=== PATIENT | male | born 1980 | race Caucasian/White ===

== ENCOUNTER 2018-01-14 11:18 | Emergency (ER) | payer MEDICAID ==
[~2018-01-14 11:18] MED LIST: BUTA1CAP36 PO; BUTA1CAP4 PO; CYCL10TA29 PO; DICL-195 PO; DICY-42 PO; Flexeril; KET10 PO; METO-734 PO; ONDA4TAB PO; OXYC-865 PO; PROM-110 PO
--- NOTE | 2018-01-14 11:25 | ER Report ---
History and Physical Time Seen By MD: 11:26 Hx. of Stated Complaint: PATIENT IS REPORTING LEFT KNEE PAIN HPI/ROS CHIEF COMPLAINT: Left knee pain HISTORY OF PRESENT ILLNESS: 37-year-old male patient presents to emergency room with complaint of left knee pain. Patient states his been having pain to the kn ee for the past month. He states that he saw his primary care provider who felt that he had a torn meniscus and wanted him to try physical therapy. He states he's done physical therapy for to 3 weeks and states that yesterday he squatted down to grab something off the floor and when he stood up felt a pop in his knee. He believes he may have torn the rest the meniscus. Patient states that he has had significant amounts of pain throughout the last 24 hours. He states that the pain is worse any time that he bends his knee. States the pain is better whenever he keeps the leg straight. Patient states he does not have any pain with bearing weight on the leg. Patient states he is taking diclofenac with no improvement. REVIEW OF SYSTEMS: Respiratory: No cough, no dyspnea. Cardiovascular: No chest pain, no palpitations. Gastrointestinal: No vomiting, no abdominal pain. Musculoskeletal: As noted above Allergies: Coded Allergies: No Known Drug Allergies (Unverified , 12/02/16) Home Meds Active Scripts Tramadol Hcl (TRAMADOL HCL) 50 Mg Tablet, 50 MG PO Q4-6H PRN for PAIN, #8 TAB Prov:KIM GODDARDSSE METAL MACHINE SETTER 01/14/18 Metoclopramide Hcl (REGLAN) 10 Mg Tablet, 10 MG PO Q6H PRN for nausea, #30 Prov:GINA MARTIN DO 12/02/16 Butalb/Acetaminophen/Caffeine (FIORICET 50-300-40 MG CAPSULE) 1 Each Capsule, 1 EACH PO Q4H PRN for HEADACHE, #20 CAPSULE Prov:GINA MARTIN DO 08/07/16 Promethazine Hcl (PROMETHAZINE HCL) 25 Mg Tablet, 25 MG PO Q4H PRN for NAUSEA/VOMITING, #14 TAB Prov:GINA MARTIN DO 08/07/16 Oxycodone Hcl/Acetaminophen (PERCOCET 5-325 MG TABLET) 1 Each Tablet, 1 EACH PO Q4-6H PRN for pain, #12 Prov:GINA MARTIN DO 08/07/16 Reported Medications Cyclobenzaprine Hcl (CYCLOBENZAPRINE HCL) 10 Mg Tablet, 10 MG PO PRN PRN for OK, #9 TAB 08/07/16 Diclofenac Sodium (DICLOFENAC SODIUM) 75 Mg Tablet.dr, 75 MG PO PRN PRN for MIGRAINE, TAB 08/07/16 Past Medical/Surgical History Patient has a past medical history of migraines, asthma, reflux, back pain, substance abuse, depression, anxiety, suicide attempt. Patient has surgical history of tooth extractions. Reviewed Nurses Notes: Yes Hx Smoking: Yes (1 PPD X 15 YRS ) Smoking Status: Current: Every Day Smoker Hx Substance Use Disorder: Yes Hx Alcohol Use: No Constitutional Vital Sign - Last 24 Hours 01/14/18 01/14/18 11:22 12:26 Temp 98.2 Pulse 94 97 Resp 20 20 B/P (MAP) 133/98 147/92 (110) Pulse Ox 95 95 O2 Delivery Room Air Physical Exam General Appearance: The patient is alert, has no immediate need for airway protection and no current signs of toxicity. Respiratory: Chest is non tender, lungs are clear to auscultation. Cardiac: regular rate and rhythm Gastrointestinal: Abdomen is soft and non tender, no masses, bowel sounds normal. Musculoskeletal: Neck: Neck is supple and non tender. Extremities have full range of motion and are non tender. Patient has increasing tenderness with varus maneuver, no pain with valgus maneuver, there is no laxity noted in the knee. Skin: No rashes or lesions. DIFFERENTIAL DIAGNOSIS: After history and physical exam differential diagnosis was considered for knee sprain, meniscal tear. Medical Decision Making EKG/Imaging Imaging KNEE 4 VIEW LEFT Indication: Left knee pain. No indication of trauma. Comparison: None available Findings: 4 views left knee were obtained. No acute fracture or dislocation. No bony lesions. No appreciable degenerative changes. On the sunrise view there is mild lateral tilt of the patella without focal abnormality. Soft tissues are unremarkable. IMPRESSION: 1.No acute osseous abnormality of the left knee. On the sunrise view there is a mild lateral tilt of the patella. This nonspecific could be chronic or acute soft tissue medial injury. Report Dictated By: Jacob Maki at 01/14/2018 12:11 PM Report E-Signed By: Jacob Maki at 01/14/2018 12:13 PM ED Course/Re-evaluation ED Course Patient was admitted to an exam room, history and physical were obtained. Differential diagnoses were considered. On examination lungs are clear, heart is regular, patient does have tenderness to the left knee, pain seems to worse with a varus maneuver. And x-rays done of the left knee which was negative. Patient was placed in a knee immobilizer and patient was given crutches. We'll go ahead and have him follow-up with primary bone or joint. With patient having physical therapy not having any improvement I believe that this time to follow-up with orthopedics for further evaluation. Patient verbalized understanding and agreement with plan. Decision to Disposition Date: Jan 14, 2018 Decision to Disposition Time: 12:21 Depart Departure Latest Vital Signs Vital Signs Date Time Temp Pulse Resp B/P (MAP) Pulse Ox O2 Delivery O2 Flow Rate FiO2 01/14/18 12:26 97 20 147/92 (110) 95 01/14/18 11:22 98.2 Room Air Impression: Primary Impression: Left knee sprain Condition: Improved Disposition: HOME OR SELF-CARE Referrals: BRIE RAZO PA-C (PCP) YUSEF ARAIZA MD New Scripts Tramadol Hcl (TRAMADOL HCL) 50 Mg Tablet 50 MG PO Q4-6H PRN for PAIN, #8 TAB Prov: VIC GODDARD 01/14/18 Patient Instructions: Knee Sprain (ED) Additional Instructions: Limit activity by pain. Get plenty of rest. Wear the knee immobilizer when you are up moving around. You may take it off to shower, rest or sleep. Return to the ER if condition worsens. Follow up with [facility], call on Tuesday to make an appointment. Problem Qualifiers Primary Impression: Left knee sprain Encounter type: initial encounter Involved ligament of knee: unspecified ligament Qualified Codes: S83.92XA - Sprain of unspecified site of left knee, initial encounter VIC GODDARD Jan 14, 2018 11:25
--- NOTE | 2018-01-14 12:16 | RADIOLOGY IMAGING REPORT ---
[place] [facility] [place] Crispin Stearns : 1980 MR: [id number] V: [id number] EXAM DATE: ORDERING PHYSICIAN: VIC GODDARD TECHNOLOGIST: Location: [facility] Patient: Crispin Stearns : 1980 Visit/Account:[id number] Date of Sevice: 01/14/2018 KNEE 4 VIEW LEFT Indication: Left knee pain. No indication of trauma. Comparison: None available Findings: 4 views left knee were obtained. No acute fracture or dislocation. No bony lesions. No appreciable degenerative changes. On the sunris e view there is mild lateral tilt of the patella without focal abnormality. Soft tissues are unremark able. IMPRESSION: 1.No acute osseous abnormality of the left knee. On the sunrise view there is a mild lateral tilt o f the patella. This nonspecific could be chronic or acute soft tissue medial injury. Report Dictated By: Jacob Maki at 01/14/2018 12:11 PM Report E-Signed By: Jacob Maki at 01/14/2018 12:13 PM WSN:[id number]
[2018-01-14] MEDS ORDERED: TRAM-420 PO (12:18)
[2018-01-14 12:26] VITALS: BP 147/92
== END 2018-01-14 12:27 | disposition home or self-care (01) ==
LOC: ER 11:26
DX: S83.92XA Sprain of unspecified site of left knee, initial encounter (principal)
CPT/HCPCS: 73564; 99283; L1830